=== PATIENT | female | born 1965 | race Caucasian/White ===

== ENCOUNTER 2021-05-27 06:09 | Day surgery (SDC) | payer BC ==
[~2021-05-27] VITALS: Ht 157.5 cm; Wt 110.0 kg
[~2021-05-27 06:09] MED LIST: ACETAMINOPHEN 500 MG TABLET PO PRN; FURO-68 PO; HYDROmorphone 2 MG/ML VIAL IVP PRN; IV RINGERS,LACTATED 1000ML 1,000 ML IV SCH; METF500T16 PO; PANT40TA77 PO; PROCHLORPERAZINE 10 MG/2 ML VIAL. IVP PRN; VARE0.5T PO; fentaNYL PF VIAL 100 MCG/2 ML VIAL IVP PRN
[2021-05-27 06:30] VITALS: BP 128/60
[2021-05-27] MEDS: INSULIN LISPRO 100 UNIT/ML 3ML VIAL for OP,RR ONLY. SQ PRN ×2 (06:55→09:35)
[2021-05-27] MEDS ORDERED: PROPOFOL 10 MG/ML (20ML) VIAL. IV ONE (07:03)
[2021-05-27] MEDS ORDERED: LIDOCAINE 1% PF 5 ML VIAL. ONE (07:03)
[2021-05-27] MEDS ORDERED: ROCURONIUM 50 MG/5 ML VIAL. ONE (07:04)
[2021-05-27] MEDS ORDERED: FAMOTIDINE 20 MG/2 ML VIAL ONE (07:05)
[2021-05-27] MEDS ORDERED: DEXAMETHASONE SOD PHOS 4 MG/ML VIAL ONE (07:05)
[2021-05-27] MEDS ORDERED: ONDANSETRON PF 4 MG/2 ML VIAL. ONE (07:06)
[2021-05-27] MEDS ORDERED: fentaNYL PF VIAL 100 MCG/2 ML VIAL ONE ×2 (07:09→09:30)
[2021-05-27] MEDS ORDERED: BUPIVACAINE-EPI 0.25%-1:200000 MPF 30 ML VIAL. ONE (07:12)
[2021-05-27] MEDS ORDERED: SUCCINYLCHOLINE 200 MG/10 ML VIAL. ONE (07:36)
[2021-05-27] MEDS ORDERED: NEOSTIGMINE METHYLSULFATE 5 MG/5 ML SYRINGE. ONE (08:29)
[2021-05-27] MEDS ORDERED: GLYCOPYRROLATE 1 MG/5 ML VIAL. ONE (08:30)
[2021-05-27] MEDS ORDERED: SEVOFLURANE 61 TO 120 MINUTES. IH ONE (08:43)
--- NOTE | 2021-05-27 09:02 | PDOC4 ---
Operative Note Operative Note Date: May 272020 at 09 100 Preoperative diagnosis: Incarcerated ventral incisional hernia Postoperative diagnosis: Same Procedure: Robotic assisted laparoscopic ventral hernia repair with mesh Surgeon: Jono Specimen: None Dictation: Patient is a 55-year-old female developed a incisional hernia at her umbilicus after having a laparoscopic cholecystectomy. The procedure of robotic assisted laparoscopic ventral hernia repair with mesh was explained to the patient in detail risk benefits were also discussed including bleeding infection injury to intra-abdominal contents possible necessitating further open operations alternatives to this procedure also discussed with the patient who seemed to understand and gave both verbal and written consent to have the procedure performed. Patient was taken to the operating room placed in the supine position general anesthesia was initiated once patient was sleeping intubated her abdomen was prepped and draped usual sterile fashion using ChloraPrep. Area in the left upper quadrant was injected with quarter percent Marcaine with epinephrine incision was made 11 blade scalpel and a 5 mm Visiport was placed under direct visualization into the abdomen creating pneumoperitoneum once this was complete the abdomen was inspected with a 5 mm scope camera showing a incisional hernia at the umbilicus with incarcerated omentum. A 8 mm da Eboni port was placed in the left midabdomen and an 8 mm da Eboni port was placed in the left lower abdomen and the 5 mm Visiport was changed out to 8 mm da Eboni port. The da Eboni robot was brought and docked all port sites surgeon went to the robotic console using a grasper and Endo Shawna scissors the omentum was reduced from the hernia defect. The hernia defect was then closed with a running 2 OV lock nonabsorbable suture. Ventral light ST mesh was then placed over the hernia defect this was sewn into place with a circumferential absorbable V lock 2-0 suture. Sutures were all removed from the abdomen the da Eboni robot was undocked from all port sites pneumoperitoneum was reduced all ports were removed port sites were all closed with 4 subcuticular Monocryl Mastisol Steri-Strips and island dressings were applied. Patient was awakened and extubated in the operating room taken to recovery in stable condition all sponge instrument needle counts listed as correct estimated blood loss 5 mL. SUZAN ACOSTA MD May 27, 2021 09:02
[2021-05-27] MEDS ORDERED: OXYC1TAB15 PO (09:04)
--- NOTE | 2021-05-27 09:05 | DISCH ---
DISCHARGE INSTRUCTIONS Condition on Discharge Condition on Discharge: Stable Activity After Discharge Activity Instructions for Disc: Avoid exertion Other activity instructions: No lifting more than 20 pounds for 2 weeks Diet after Discharge Diet after Discharge: Regular Wound Incision Care Other wound/incision instructi: May shower in 24 hours Contacting the after DC Call your doctor for: If your condition worsens Follow-Up Follow up with: Dr. Acosta in 2 weeks SUZAN ACOSTA MD May 27, 2021 09:05
[2021-05-27] MEDS ORDERED: MORPHINE SULFATE 2 MG/ML INJ. ONE (09:13)
[2021-05-27] MEDS: MORPHINE SULFATE 2 MG/ML INJ. IVP PRN ×2 (09:15→09:25)
[2021-05-27] MEDS ORDERED: PROCHLORPERAZINE 10 MG/2 ML VIAL. ONE (09:21)
[2021-05-27] MEDS ORDERED: INSULIN LISPRO 100 UNIT/ML 3ML VIAL for OP,RR ONLY. SQ ONE ×2 (09:35)
[2021-05-27 09:41] VITALS: BP 120/61
[2021-05-27] MEDS ORDERED: KETOROLAC 30 MG/ML VIAL. ONE (09:45)
[2021-05-27] MEDS ORDERED: oxyCODONE/APAP 5/325 1 TAB TABLET PO ONE (09:45)
[2021-05-27] MEDS ORDERED: KETOROLAC 30 MG/ML VIAL. IVP ONE (09:45)
== END 2021-05-27 10:36 | disposition home or self-care (01) ==
LOC: SURG 06:09
PROVIDERS: ATTEND Surgery
DX: K43.0 Incisional hernia with obstruction, without gangrene (principal); G47.30 Sleep apnea, unspecified; K21.9 Gastro-esophageal reflux disease without esophagitis; E11.9 Type 2 diabetes mellitus without complications; M19.90 Unspecified osteoarthritis, unspecified site; Z90.49 Acquired absence of other specified parts of digestive tract; Z98.890 Other specified postprocedural states; Z79.899 Other long term (current) drug therapy; Z79.84 Long term (current) use of oral hypoglycemic drugs; Z87.891 Personal history of nicotine dependence
CPT/HCPCS: 49653; 82962; A4364; A4930; A6219; C1781; J0330; J0690; J0780; J1100; J1815; J1885; J2270; J2405; J2704; J2710; J3010; J3490; S2900; A4452; A4657